=== PATIENT | female | born 1970 ===

== ENCOUNTER 2025-01-01 10:02 | Outpatient (AMB) | payer BC, SELFPAY | END 2025-01-01 10:07 | disposition home or self-care (01) | LOC: HO.HMGAL 10:02 | PROVIDERS: PCP Internal Medicine; Visit Provider Registered Nurse Emergency | DX: J30.89 Other allergic rhinitis (principal) | CPT/HCPCS: 95117; 95165 ==

== ENCOUNTER 2025-02-14 12:58 | Outpatient (AMB) | payer BC, SELFPAY | END 2025-02-14 13:23 | disposition home or self-care (01) | LOC: HO.HMGAL 12:58 | PROVIDERS: PCP Internal Medicine; Visit Provider Registered Nurse Emergency | DX: J30.89 Other allergic rhinitis (principal) | CPT/HCPCS: 95117; 95165 ==

== ENCOUNTER 2025-04-02 15:59 | Outpatient (AMB) | payer BC, SELFPAY ==
--- OUTSIDE RECORDS SUMMARY | 2025-04-03 01:35 | XMS_ITS | Continuity of Care Document ---
Author Organization [place] - [facility], [facility] Address [address] [place] [address] Care Team Providers Care Tree Climber Name Role Phone KRISTINA ALEGRE Primary Care Provider [phone] Assessment Encounter Date Assessment Date Assessment LastModified by Organization Details LastModified Time 01/15/2025 01/15/2025 Patient will consider whether she wants to undergo testing and resume injection immunotherapy , manage things medically or return to her previous provider for monthly injections. It is hard to say the benefit of injections after 10 or 15 years. [email or web address] Not available 01/15/2025 12:00:32 Plan of Treatment Reminders Order Date Submit Date Provider Last Modified By Organization Details Last Modified Time Details Appointments None recorded . Lab None recorded . Referral None recorded . Procedures spiromet ry, includin g graphic record, total and timed vital capacity , expirato ry flow rate measurem ent(s) (PROC) 2024 025 [email or web address] Not available 5 11:53:29 allergy testing, skin prick (PROC) 2024 025 [email or web address] Not available 5 10:34:15 intrader mal allergy skin testing (PROC) 2024 025 [email or web address] Not available 5 10:34:15 pulse oximetry (PROC) 2024 025 [email or web address] Not available 10:34:16 Surgeries None recorded . Imaging None recorded . Medication Orders None recorded . Patient TargetsNo targets recorded. Patient Instructions Encounter Date Encounter Id Patient Instructions Last Modified By Organization Details Last Modified Time 01/15/2025 [id number] Please note: Parts of this encounter note have been generated by AI based on audio conversation. Patient consent was required prior to utilizing this technology. Content review was required prior to finalizing the note. [email or web address] Not available 01/15/2025 09:56:25 Reason for Referral None Reported. Results Created Date Observation Date Name Description Value Unit Range Abnormal Flag Note LastModifiedBy Organization Detail LastModifiedTime 01/16/2004/21/2011 XR, sinus es, paran anyi No observ ation record ed. [email or web address] Not Available 12/26 11:32:58 01/16/2004/21/2011 XR, chest , 2 view No observ ation record ed. Not Available 12/26 11:35:51 Result Notes None recorded. Problems Name Problem SNOMED Code Status Onset Date Resolution Date Notes Provider Name and Address Organization Details Recorded Time Perennial allergic rhinitis 951775465 Active 2024 LIDIA MARCELINO MD [address] [place] [address], [phone], [facility] - [facility] [place] 09:54:04 Snoring 17879887 Active 2024 LIDIA MARCELINO MD [address] [place] [address], [phone], [facility] [place] 09:54:08 Essential hypertension 90909336 Active 2024 LIDIA MARCELINO MD [address] [place] [address], [phone], [facility] - [facility] [place] 09:54:22 Problem Notes None recorded. Procedures Surgical History Date Name Laterality Status Provider Name and Address Organization Details Recorded Time laminectomy completed Therese Abbott [facility] 01/15/2025 09:59:13 cholecystectomy completed Therese Ramos [place] - [facility] [place] 01/15/2025 09:59:28 Imaging Results None recorded. Procedure Notes None recorded. Medical Equipment None Reported. Allergies Allergen ID Allergen Name Allergen Category Reaction Reaction Severity Criticality Documentation Date Start Date Code Code System Note Provider Name and Address Organization Details Recorded Time 228608 Product containin g penicilli n (product) medicatio n Not available Not available Not available 01/15/2025 40534 8001 SNOMED Therese hernández [facility] 09:58:47 509741 clindamyc in Not available Not available Not available Not available 01/15/2025 2582 RxNorm Therese hernández [place] [facility] 09:58:56 Medications Name Sig Start Date Stop Date Status Note LastModified by Organization Details LastModified Time azithromycin 250 mg tablet 01/15 completed Not Available Not Available Not Available metronidazole 250 mg tablet 01/15 completed Not Available Not Available Not Available tramadol 50 mg tablet TAKE 1 TABLET BY MOUTH EVERY 6 HOURS FOR 3 DAYS NEEDED FOR PAIN 01/15 completed Not Available Not Available Not Available Vitals Date Recorded Body height Body mass index (BMI) Body weight Systolic And Diastolic Provider Name and Address Organization Details Last Updated DateTime 01/15/2025 157.48 cm 40.2 kg/m2 47771.32 g 150/90 mm[Hg] Therese Ramos [facility] 01/15/2025 09:24:03 Social History None recorded. Functional Status None recorded. Mental Status None recorded. Family History Nothing Reported. Medical History Condition Response Hypertension Y Kidney Disease Y Gynecological HistoryNo gynecological history recorded. Obstetrics History GPAL:G 0 P 0 0 0 0 Past Encounters Encounter ID Performer Location Encounter Start Date Encounter Closed Date Diagnosis/Indication Diagnosis SNOMED-CT Code Diagnosis ICD10 Code Diagnosis IMO Codes Diagnosis Note [id number] LIDIA FOURNIER MD [facility] [address] [place] [address] 01/15/2025 09:07:56 01/15/2025 10:04:01 Perennial allergic rhinitis 013927482 J30.89 123709 Snoring 81436761 R06.83 93151 Will discuss with PCP possible polysomnog colten Essential hypertension 58166068 I10 73924 was normal at PCP and at home Health Concerns Section Related Observation LastModified by Organization Detai ls LastModified Time None Recorded Concern Status LastModified by Organization Details LastModified Time None Recorded Payers Encounter Date Sequence Insurance Name Policy Number Policy Byrd Covered Member ID Byrd Member ID Guarantor Name 01/15/2025 1 [employer]-ID [facility] (PP[place]) [id number] Angeles Marks [id number] Angeles Marks Notes Date Note Type Note Provider Name and Address Organization Details Recorded Time 01/15/2025 text/html Angeles Marks is a 54-year-old female who presents for allergy evaluation. She reports a history of significant allergies, including dust mites, ragweed, molds, dog, and cat. She has been receiving allergy injections for approximately 10 to 12 years. Her primary symptom prior to treatment was a constant tickle and cough, which has improved with the injections. She has one cat at home and notes that while she is allergic, she only experiences irritation when petting the cat and must wash her hands afterward. She denies taking any allergy medications currently. Her medical history includes controlled hypertension managed with losartan, and she is also on metformin and glipizide. She denies any history of sleep apnea, snoring, or waking up tired. Her blood pressure was noted to be slightly elevated during today's visit, though she reports normal readings at home and during her annual PCP visit. She recalls a prior allergy test where reactions required the testing to be stopped temporarily. LIDIA LOPEZ MD [address] [place] [address], [phone], [facility] - [facility] 01/15/2025 12:01:15 OBGyn Episode No OBEpisode recorded.
--- OUTSIDE RECORDS SUMMARY | 2025-04-03 01:36 | XMS_ITS | Data Portability ---
Author Organization [place] - [facility], Allergy Address [address] [address] Care Team Providers Care Feed Research Technician Name Role Phone SIS KRISTINA Primary Care Provider Assessment Encounter Date Assessment Date Assessment LastModified [...] flow rate measurem ent(s) (PROC) 2024 025 [email or web address] Not available 5 11:53:29 allergy testing, skin prick (PROC) 2024 025 [email or web address] Not available 10:34:15 intrader mal allergy skin testing (PROC) 2024 025 [email or web address] Not available 10:34:15 pulse oximetry (PROC) 2024 025 [email or web address] Not available 10:34:16 Surgeries None recorded . Imaging None recorded . Medication Orders None recorded . Patient TargetsNo targets recorded. Patient Instructions Encounter Date Encounter Id Patient Instructions Last Modified By Organization Details Last Modified Time 01/15/2025 [id number] Please note: Parts of this encounter note [...] paran anyi No observ ation record ed. [email or web address] Not Available 12/26 11:32:58 01/16/2004/21/2011 XR, chest , 2 view No observ ation record ed. [email or web address] Not Available 12/26 11:35:51 Result Notes None recorded. Problems Name Problem SNOMED Code Status Onset Date Resolution Date Notes Provider Name and Address Organization Details Recorded Time Perennial allergic rhinitis 511585284 Active 2024 LIDIA MARCELINO MD [address] [place] [address], [phone], [facility] [place] 09:54:04 Snoring 53938876 Active 2024 LIDIA MARCELINO MD [address] [place] [address], [phone], [facility] [place] 09:54:08 Essential hypertension 45185457 Active 2024 LIDIA MARCELINO MD [address] [place] [address], [phone], [facility] - [facility] [place] 09:54:22 Problem Notes None recorded. Procedures Surgical History Date Name Laterality Status Provider Name and Address Organization Details Recorded Time laminectomy completed Therese Ramos [place] [facility] [place] 01/15/2025 09:59:13 cholecystectomy completed Therese Ramos [place] - [facility] [place] 01/15/2025 09:59:28 Imaging Results None recorded. Procedure Notes None recorded. Medical Equipment None Reported. Allergies Allergen ID Allergen Name Allergen Category Reaction Reaction Severity Criticality Documentation Date Start Date Code Code System Note Provider Name and Address Organization Details Recorded Time 699095 Product containin g penicilli n (product) medicatio n Not available Not available Not available 01/15/2025 16321 8001 SNOMED Therese hernández MA [facility] 09:58:47 100880 clindamyc in Not available Not available Not available Not available 01/15/2025 2582 RxNorm Therese hernández [place] [facility] 09:58:56 Medications Name Sig Start Date Stop [...] Updated DateTime 01/15/2025 157.48 cm 40.2 kg/m2 50526.32 g 150/90 mm[Hg] Therese Ramos [facility] 01/15/2025 09:24:03 Social History None recorded. Functional [...] ICD10 Code Diagnosis IMO Codes Diagnosis Note [id number] LIDIA FOURNIER MD [facility] [address] [place] [address] 01/15/2025 09:07:56 01/15/2025 10:04:01 Perennial allergic rhinitis 066610138 J30.89 021416 Snoring 70140797 R06.83 78705 Will discuss with PCP possible polysomnog colten Essential hypertension 06323582 I10 07211 was normal at PCP and at home Health Concerns Section Related Observation LastModified by Organization Detai ls LastModified Time None Recorded Concern Status LastModified by Organization Details LastModified Time None Recorded Advance Directives Directive None Recorded Payers Insurance Date Sequence Insurance Name Policy Number Policy Byrd Covered Member ID Byrd Member ID Guarantor Name 01/15/2025 1 BS-ID [facility] ([place]) [id number] Angeles Marks [id number] Angeles Marks Notes Date Note Type [...] to be stopped temporarily. LIDIA LOPEZ MD [address] [place] [address], [phone], [facility] - [facility] 01/15/2025 12:01:15 OBGyn Episode No OBEpisode recorded.
== END 2025-04-02 15:59 | disposition home or self-care (01) ==
LOC: HO.HMGAL 15:59
PROVIDERS: PCP Internal Medicine; Visit Provider Registered Nurse Emergency
DX: J30.89 Other allergic rhinitis (principal)
CPT/HCPCS: 95117; 95165